=== PATIENT | male | born 1955 | race Two or more races ===

== ENCOUNTER 2023-05-19 13:05 | Outpatient (CLI) | payer OTHER | END 2023-05-19 13:11 | disposition home or self-care (01) | LOC: RAD 13:05 | PROVIDERS: ATTEND Internal Medicine Cardiovascular Disease | DX: I11.9 Hypertensive heart disease without heart failure (principal); I25.2 Old myocardial infarction; I25.10 Atherosclerotic heart disease of native coronary artery without angina pectoris; I70.0 Atherosclerosis of aorta ==

== ENCOUNTER 2023-06-07 07:33 | Outpatient (CLI) | payer OTHER | END 2023-06-07 07:36 | disposition home or self-care (01) | LOC: NUCLEAR 07:33 | PROVIDERS: ATTEND Internal Medicine Cardiovascular Disease | DX: I25.10 Atherosclerotic heart disease of native coronary artery without angina pectoris (principal); I11.9 Hypertensive heart disease without heart failure; I25.2 Old myocardial infarction; E11.9 Type 2 diabetes mellitus without complications | CPT/HCPCS: 78452; 93017; A9500; J0153 ==

== ENCOUNTER 2023-08-12 09:27 | Outpatient (CLI) | payer OTHER | END 2023-08-12 09:31 | disposition home or self-care (01) | LOC: MRI 09:27 | DX: R41.3 Other amnesia (principal); R41.2 Retrograde amnesia | CPT/HCPCS: 70553; Q9965; 70552 ==

== ENCOUNTER 2025-02-26 10:33 | Outpatient (CLI) | payer OTHER | END 2025-02-26 10:36 | disposition home or self-care (01) | LOC: TOM 10:33 | DX: M54.50 Low back pain, unspecified (principal); M54.16 Radiculopathy, lumbar region; S32.010A Wedge compression fracture of first lumbar vertebra, initial encounter for closed fracture; X58.XXXA Exposure to other specified factors, initial encounter; Y93.9 Activity, unspecified; Y92.9 Unspecified place or not applicable; Y99.9 Unspecified external cause status ==